=== PATIENT | male | born 1940 ===

== ENCOUNTER 2018-05-17 14:42 | Outpatient (CLI) | payer MEDICARE ==
--- NOTE | 2018-05-17 17:28 | MRI ---
LEFT SHOULDER MRI WITHOUT IV CONTRAST: HISTORY: A 77-year-old male with a history of N25.512, left shoulder pain, with limited and painful range of m otion, as well as weakness. TECHNIQUE: Multiplanar, multisequence MRI examination of the left shoulder is performed. FINDINGS: There is a complete retracted tear of the infraspinatus tendon, with high-grade tearing and some asso ciated retraction of the supraspinatus tendon, with what appear to be a few fibers from the supraspin atus tendon, extending to the region of the biceps anchor. There is marked posterior subluxation of the humeral head, relative to the glenoid. There is some high-grade undersurface tearing of the subs capularis tendon, with what appears to be some associated tendinopathy and possibly some associated g ranulation tissue along the undersurface. There is a very high-grade, attenuated, thinned appearance of the biceps tendon, at the level of the upper bicipital groove, with some associated medial sublux ation with some focal thickening of the biceps tendon, caudally, in the bicipital groove, evidence fo r a high-grade, partial-thickness tear, with some associated retraction, as well as what appears to b e some tendinopathy of the biceps tendon, in the intraarticular portion. Severe AC joint arthrosis w ith prominent subchondral cystic changes and fluid in the subacromial and subdeltoid bursa. There is fluid within the subcoracoid recess. Blunting and indistinction of the labrum, particularly the pos terior labrum. There is, in addition, some indistinction involving the undersurface of the deltoid m uscle, probably some low-grade, partial-thickness, undersurface tearing or fraying. No focal full-th ickness actual dehiscence. There is moderate to severe muscle volume loss of the supraspinatus, infr aspinatus, teres minor, and superior portion of the subscapularis muscles. IMPRESSION: 1. Severe longstanding multiple rotator cuff injuries, as above, with some resultant posterior sublu xation of the humeral head, relative to the glenoid. 2. Severe acromioclavicular joint arthrosis. 3. Moderate to severe supraspinatus, infraspinatus, teres minor, and superior subscapularis muscle v olume loss. POS: DELROY
== END 2018-05-17 14:43 | disposition home or self-care (01) ==
LOC: BICMRI 14:42
PROVIDERS: ATTEND Orthopaedic Surgery
DX: M25.512 Pain in left shoulder (principal); S43.002A Unspecified subluxation of left shoulder joint, initial encounter; S46.002A Unspecified injury of muscle(s) and tendon(s) of the rotator cuff of left shoulder, initial encounter; M19.012 Primary osteoarthritis, left shoulder

== ENCOUNTER 2020-04-11 11:48 | Inpatient (IN) | payer MEDICARE ==
--- NOTE | 2020-04-11 14:14 | RAD ---
PORTABLE CHEST ONE VIEW: 04/11/20 at 2:09 p.m. HISTORY: Dyspnea. COMPARISON: 01/13/12. FINDINGS: The heart size is prominent. The lungs are expanded without lobar consolidation, pneumothoraces, reggie k pulmonary edema, or pleural effusions. IMPRESSION: No acute process. POS: AH
[2020-04-11] MEDS ORDERED: cefTRIAXone\\ROCEPHIN 1 GM VIAL ONE (14:39)
[2020-04-11] MEDS ORDERED: Vancomycin 1 GM/200 ML BAG ONE (14:39)
[2020-04-11 14:44] LABS: #Basophils 0.1 thou/uL (0.0-0.2); #Eosinphils 0.1 thou/uL (0.0-0.7); #Lymphocytes 1.1 thou/uL (1.20-3.40); #Monocytes 0.9 thou/uL (0.11-0.59); #Neutrophils 8.7 thou/uL (1.40-6.50); %Basophils 0.5 % (0.0-1.0); %Eosinophils 1.1 % (0.0-10.0); %Lymphocytes 9.9 % (21.0-51.0); %Monocytes 8.5 % (0.0-10.0); Hemoglobin 14.4 g/dL (14.0-18.0); Mean Corpuscular HGB CONC 32.1 g/dL (32.0-36.0); Mean Corpuscular Hemoglobin 29.4 pg (27.0-31.0); Mean Corpuscular Volume 91.6 fL (78.0-98.0); Mean Platelet Volume 9.1 fL (7.4-10.4); Platelet Count 239 thou/uL (130-400); RBC Distribution Width 13.6 % (11.5-14.5); Red Blood Cell (RBC) Count 4.89 mill/uL (4.70-6.10); White Blood Cell (WBC) Count 10.9 thou/uL (4.8-10.8)
[2020-04-11 15:13] LABS: ALT (SGPT) 12 U/L (8-55); AST (SGOT) 22 U/L (5-34); Albumin 4.3 g/dL (3.4-4.8); Alkaline Phosphatase 82 U/L (40-110); Anion Gap 14 mmol/L (10-20); BUN (Urea Nitrogen) 14 mg/dL (8.4-25.7); Bilirubin, Total 0.8 mg/dL (0.2-1.2); CK (CPK) 105 U/L (30-200); Calc. Creatinine Clearance 0 mL/min (70-130); Calcium 9.9 mg/dL (7.8-10.44); Carbon Dioxide 24 mmol/L (23-31); Chloride 107 mmol/L (98-107); Estimated GFR-MDRD 73; Glucose 89 mg/dL (83-110); Potassium 4.4 mmol/L (3.5-5.1); Protein, Total 7.3 g/dL (5.8-8.1); Sodium 141 mmol/L (136-145)
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
[2020-04-11] MEDS ORDERED: Ondansetron PF 4 MG/2 ML Vial IVP PRN (18:00)
[2020-04-11] MEDS ORDERED: Ondansetron ODT 4 MG TAB SL PRN (18:00)
--- NOTE | 2020-04-11 18:02 | PDOC.FMACP ---
Advance Care Planning - Note Participants: patient Summary: Advanced Care Planning was discussed. The diagnosis, prognosis and goals of care were discussed. Appropriate forms and documentation to accomplish the goals of care were discussed. All questions were answered. The Palliative Care Team will be engaged to assist with completion of any outstanding forms that are needed. Patient would like to be a full code
--- NOTE | 2020-04-11 19:04 | RAD ---
CHEST ONE VIEW: 04/11/20 HISTORY: Shortness of breath. COMPARISON: 04/11/20 FINDINGS: Cardiomegaly. Pulmonary vessels and hilum are normal. Costophrenic angles are clear. No consolidation or mass. No pneumothorax or acute osseous abnormalities. There is evidence of previous right rotator cuff repair. IMPRESSION: No acute cardiopulmonary process. POS: PPP
[2020-04-11 19:07] LABS: Troponin I 0.024 ng/mL (< 0.028)
[2020-04-11 19:12] VITALS: BMI 26.8
[2020-04-11] MEDS: Atorvastatin Calcium 20 MG TAB PO SCH (20:47)
[2020-04-12 00:23] LABS: Bacteria/HPF None Seen HPF (None Seen); Bilirubin Negative (Negative); Blood, Urine Negative (Negative); Clarity Turbid (Clear); Glucose, Urine (Dipstick) Normal (Negative); Ketone, Urine Negative (Negative); Leukocyte 75 Leu/uL (Negative); Nitrite Negative (Negative); Protein, Urine (Dipstick) Negative (Neg-Trace); Specific Gravity, Urine 1.013 (1.002-1.036); Squamous Epithelial None Seen HPF (0-3); Urobilinogen Normal mg/dL (Less than 2); WBC/HPF 21-50 HPF (0-3)
[2020-04-12 00:30] LABS: Urine Culture Reflex Yes Yes
[2020-04-12] MEDS: Vancomycin 1 GM in Premix Bag 1 BAG IVPB SCH ×2 (04:11→15:36)
[2020-04-12] MEDS: Sodium Chloride 0.9% 1,000 ML IV SCH ×2 (04:17→04:18)
[2020-04-12] MEDS: Amlodipine 5 MG TAB PO SCH (08:52)
[2020-04-12] MEDS: Tamsulosin HCl 0.4 MG CAP PO SCH (08:52)
[2020-04-12] MEDS: cefTRIAXone\\ROCEPHIN 2 GM in Sodium Chloride 0.9% 100 ML IVPB SCH (08:53)
[2020-04-12] MEDS ORDERED: Ramipril 5 MG CAP PO SCH (09:00)
--- NOTE | 2020-04-12 11:44 | PDOC.HOSPP ---
- Subjective Encounter Date: 04/12/20 Encounter Time: 11:40 Subjective: f/u for dyspnea and severe MR with vegetation currently receiving Rocephin/Vancomycin for suspected infectious endocarditis. Plan for ASUNCION on 04/14/20. - Objective Vital Signs & Weight: Vital Signs (12 hours) Temp Pulse Resp BP BP Pulse Ox 04/12/20 07:18 97.7 F 75 18 103/70 96 04/12/20 03:00 97.4 F L 73 20 112/64 96 Weight Weight 181 lb 6.4 oz I&O: 04/11/20 04/12/20 04/13/20 06:59 06:59 06:59 Intake Total 530 Output Total 400 Balance 130 Result Diagrams: 04/11/20 14:28 04/11/20 14:28 Additional Labs: Microbiology 04/11/20 18:20 Venous blood - Right Arm Blood Culture - Preliminary Specimen has been received and culture in progress. No Growth to date. 04/11/20 18:19 Venous blood - Left Arm Blood Culture - Preliminary Specimen has been received and culture in progress. No Growth to date. 04/11/20 14:28 Venous blood - Right Arm Blood Culture - Preliminary Specimen has been received and culture in progress. No Growth to date. 04/11/20 14:27 Venous blood - Left Arm Blood Culture - Preliminary Specimen has been received and culture in progress. No Growth to date. Laboratory Tests 04/11/20 14:28 B-Natriuretic Peptide 135.9 H Radiology Reviewed by me: Yes (PCXR - no acute process) EKG Reviewed by me: Yes (Tele - SR) Hospitalist ROS - Medication Medications: Active Medications Generic Name Dose Route Start Last Admin Trade Name Freq PRN Reason Stop Dose Admin Amlodipine Besylate 5 mg 04/12/20 09:00 04/12/20 08:52 Amlodipine 5 Mg Tab PO 5 mg DAILY GINA Administration Atorvastatin Calcium 20 mg 04/11/20 21:00 04/11/20 20:47 Atorvastatin Calcium 20 Mg Tab PO Not Given HS GINA Vancomycin HCl 1 gm/ Device 200 mls @ 200 mls/hr 04/12/20 03:00 04/12/20 04:11 IVPB 200 mls 0300,1500 GINA Administration Ceftriaxone Sodium 2 gm/ 100 mls @ 200 mls/hr 04/12/20 09:00 04/12/20 08:53 Sodium Chloride IVPB 100 mls Q24HR GINA Administration Pantoprazole Sodium 40 mg 04/12/20 09:00 04/12/20 08:52 Pantoprazole 40 Mg Tab PO 40 mg DAILY GINA Administration Tamsulosin HCl 0.4 mg 04/12/20 09:00 04/12/20 08:52 Tamsulosin Hcl 0.4 Mg Cap PO 0.4 mg DAILY GINA Administration - Exam General Appearance: NAD, awake alert Eye: PERRL, anicteric sclera ENT: normocephalic atraumatic, no oropharyngeal lesions, moist mucosa Neck: supple, symmetric, no JVD, no thyromegaly, no lymphadenopathy Heart: RRR, no gallops, no rubs, normal peripheral pulses, murmur present, III/IV Respiratory: CTAB, no wheezes, no rales, no ronchi, normal chest expansion, no tachypnea Gastrointestinal: soft, non-tender, non-distended, normal bowel sounds, no palpable masses Extremities: no cyanosis, no clubbing, no edema Skin: normal turgor, no lesions Neurological: cranial nerve grossly intact, no new deficit Musculoskeletal: normal tone, normal strength, no muscle wasting Psychiatric: normal affect, A&O x 3 Hosp A/P (1) Severe mitral regurgitation Code(s): I34.0 - NONRHEUMATIC MITRAL (VALVE) INSUFFICIENCY Status: Chronic Plan: Continue supportive mgmt, plan for ASUNCION on 04/14/20, ? [facility] (2) Dyspnea Code(s): R06.00 - DYSPNEA, UNSPECIFIED Status: Acute Plan: Suspect due to #1, continue mgmt as outlined above, remains on RA (3) Infective endocarditis Code(s): I33.0 - ACUTE AND SUBACUTE INFECTIVE ENDOCARDITIS Status: Acute Qualifiers: Infective endocarditis organism: bacterial Plan: Suspected, continue Rocephin/Vancomycin, ASUNCION pending (4) HTN (hypertension) Code(s): I10 - ESSENTIAL (PRIMARY) HYPERTENSION Status: Chronic Qualifiers: Hypertension type: essential hypertension Qualified Code(s): I10 - Essential (primary) hypertension Plan: Resume home BP regimen, serial monitoring (5) LAY (obstructive sleep apnea) Code(s): G47.33 - OBSTRUCTIVE SLEEP APNEA (ADULT) (PEDIATRIC) Status: Chronic Plan: Continue nocturnal CPAP - Plan plan discussed w/ family, continue antibiotics, 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 need for LHC OOB/ambulate Nocturnal CPAP AM lab: BMP, CBC
--- NOTE | 2020-04-12 15:28 | CON ---
DATE OF CONSULTATION: REASON FOR CONSULTATION: Severe MRLaurent [employer] PSYCHOLOGIST: Edward Argueta MD HISTORY OF PRESENT ILLNESS: Mr. Muñoz is a very pleasant 79-year-old gentleman, who recently was seen and evaluated by Dr. Edward Argueta. His main complaint has been shortness of breath. He states the shortness of breath began in April of last year. He did see a dentist and had dental workup. He states he had fevers and chills shortly thereafter. He has been off antibiotics a few times since April of last year. He was placed on amoxicillin in addition to Zithromax. He was seen and evaluated at [facility] in November of 2019. There was no mention of any significant changes noted on echo. He continues to complaint of shortness of breath with mild exertion. He did have an echo done in the office, which I have reviewed. Overall, LVEF did appear normal. He did have severe mitral regurgitation with an eccentric jet present. He did have a mass present on the mitral valve versus torn chordae tendineae, although more consistent with mass. PAST MEDICAL HISTORY: Hypertension. MEDICATIONS: Include; 1. Pantoprazole. 2. Amlodipine. 3. Atorvastatin. 4. Tamsulosin. 5. Ramipril. ALLERGIES: NONE. REVIEW OF SYSTEMS: Ten-point review of systems is reviewed as above, otherwise negative. PHYSICAL EXAMINATION: GENERAL: Patient is a pleasant male, who is in no acute distress. The patient appears their stated age. VITAL SIGNS: Blood pressure 110/68, pulse 76, and temperature 98. NEUROLOGIC: The patient is alert and oriented x3 with no focal neurologic deficits. HEENT: Sclerae without icterus. Mouth has moist mucous membranes with normal pallor. NECK: No JVD. Carotid upstroke brisk. No bruits bilaterally. LUNGS: Clear to auscultation with unlabored respirations. BACK: No scoliosis or kyphosis. CARDIAC: Regular rate and rhythm with 3/6 systolic ejection murmur heard best in the lower left sternal border. ABDOMEN: Soft, nontender, nondistended. No peritoneal signs present. No hepatosplenomegaly. No abnormal striae. EXTREMITIES: 2+ femoral and 2+ dorsalis pedis pulses. No cyanosis, clubbing, or edema. SKIN: No gross abnormalities. DIAGNOSTIC DATA: Echo, as above. IMPRESSION: 1. Severe mitral regurgitation. 2. 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 RECOMMENDATIONS: Blood cultures been drawn. If this was felt to be active endocarditis, I would anticipate Mr. Muñoz would appear much sicker than he currently is today. The patient will likely need a ASUNCION. I discussed the procedure in full detail with Mr. Muñoz, risks include, but not limited to the following: Damage to teeth, mouth, back of throat; damage to esophagus; as well as reaction to medication and also aspiration pneumonia. Given the above, the patient agreed to proceed with the above procedure. Otherwise, I have no further recommendations. The patient will likely need mitral clip versus mitral valve repair in the future given his symptoms of shortness of breath. Job ID: [id number]
[2020-04-12] MEDS: Atorvastatin Calcium 20 MG TAB PO SCH (20:54)
[2020-04-12] MEDS: Ramipril 5 MG CAP PO SCH (20:56)
[2020-04-13 02:25] LABS: #Basophils 0.1 thou/uL (0.0-0.2); #Eosinphils 0.6 thou/uL (0.0-0.7); #Lymphocytes 1.4 thou/uL (1.20-3.40); #Neutrophils 6.4 thou/uL (1.40-6.50); %Basophils 0.9 % (0.0-1.0); %Eosinophils 5.9 % (0.0-10.0); %Lymphocytes 14.5 % (21.0-51.0); %Monocytes 10.3 % (0.0-10.0); %Neutrophils 68.4 % (42.0-75.0); Hemoglobin 12.4 g/dL (14.0-18.0); Mean Corpuscular HGB CONC 31.1 g/dL (32.0-36.0); Mean Corpuscular Hemoglobin 28.8 pg (27.0-31.0); Mean Corpuscular Volume 92.4 fL (78.0-98.0); Mean Platelet Volume 8.9 fL (7.4-10.4); Platelet Count 225 thou/uL (130-400); RBC Distribution Width 13.4 % (11.5-14.5); White Blood Cell (WBC) Count 9.4 thou/uL (4.8-10.8)
[2020-04-13] MEDS: Vancomycin 1 GM in Premix Bag 1 BAG IVPB SCH ×2 (03:28→15:05)
[2020-04-13 03:54] LABS: Anion Gap 13 mmol/L (10-20); BUN (Urea Nitrogen) 15 mg/dL (8.4-25.7); Calc. Creatinine Clearance 74 mL/min (70-130); Calcium 8.9 mg/dL (7.8-10.44); Carbon Dioxide 22 mmol/L (23-31); Chloride 107 mmol/L (98-107); Estimated GFR-MDRD 76; Glucose 96 mg/dL (83-110); Potassium 3.8 mmol/L (3.5-5.1); Sodium 138 mmol/L (136-145)
[2020-04-13] MEDS: Amlodipine 5 MG TAB PO SCH (08:43)
[2020-04-13] MEDS: cefTRIAXone\\ROCEPHIN 2 GM in Sodium Chloride 0.9% 100 ML IVPB SCH (08:43)
[2020-04-13] MEDS: Tamsulosin HCl 0.4 MG CAP PO SCH (08:43)
[2020-04-13 10:24] LABS: SARS-CoV-2 MS2 Positive; SARS-CoV-2 N Gene Negative; SARS-CoV-2 S Gene Negative; SARS-CoV-2 by NAA Not Detected (NotDetected); SARS-CoV-2 orf1ab Negative
--- NOTE | 2020-04-13 13:29 | PDOC.CPN ---
- Subjective Date: 04/13/20 Time: 12:30 Interval history: No complaints overnight. - Review of Systems General: denies: fever/chills, weight/appetite/sleep changes, night sweats, fatigue Respiratory: denies: cough, congestion, shortness of breath, exercise intolerance Cardiovascular: denies: chest pain, palpitation, edema, paroxysmal nocturnal dyspnea, orthopnea Gastrointestinal: denies: nausea, vomiting, diarrhea, constipation, abd pain, GI bleeding Musculoskeletal: denies: pain, tenderness, stiffness, swelling, arthritis/arthralgias Neurological: denies: numbness, syncope, seizure, weakness - Objective Allergies/Adverse Reactions: Allergies Allergy/AdvReac Type Severity Reaction Status Date / Time No Known Allergies Allergy Verified 04/11/20 22:06 Visit Medications: Current Medications Amlodipine Besylate (Amlodipine 5 Mg Tab) 5 mg PO DAILY [facility] Last Admin: 04/13/20 08:43 Dose: 5 mg Documented by: Atorvastatin Calcium (Atorvastatin Calcium 20 Mg Tab) 20 mg PO HS [facility] Last Admin: 04/12/20 20:54 Dose: 20 mg Documented by: Vancomycin HCl 1 gm/ Device 200 mls @ 200 mls/hr IVPB 0300,1500 [facility] Last Admin: 04/13/20 03:28 Dose: 200 mls Documented by: Ceftriaxone Sodium 2 gm/ (Sodium Chloride) 100 mls @ 200 mls/hr IVPB Q24HR [facility] Last Admin: 04/13/20 08:43 Dose: 100 mls Documented by: Miscellaneous Medication (Pharmacy To Dose Vancomycin) 1 each IVPB PRN PRN PRN Reason: Pharmacy to dose Pantoprazole Sodium (Pantoprazole 40 Mg Tab) 40 mg PO DAILY [facility] Last Admin: 04/13/20 08:43 Dose: 40 mg Documented by: Ramipril (Ramipril 5 Mg Cap) 10 mg PO HS [facility] Last Admin: 04/12/20 20:56 Dose: Not Given Documented by: Sodium Chloride (Flush - Normal Saline 10 Ml Syringe) 10 ml IVF PRN PRN PRN Reason: Saline Flush Tamsulosin HCl (Tamsulosin Hcl 0.4 Mg Cap) 0.4 mg PO DAILY [facility] Last Admin: 04/13/20 08:43 Dose: 0.4 mg Documented by: Vital Signs & Weight: Vital Signs Temp Pulse Resp BP BP BP Pulse Ox 04/13/20 11:08 98.4 F 71 18 114/73 98 04/13/20 08:43 97 04/13/20 08:39 98.1 F 67 16 117/68 97 04/13/20 03:25 97.3 F L 82 16 107/65 95 Weight 182 lb 6 oz - Physical Exam General: alert & oriented x3, appears well, no apparent distress HEENT: mucus membranes moist Neck: supple neck Cardiac: regular rate and rhythm, systolic murmur Lungs: normal exam Neuro: grossly intact Abdomen: soft Extremities: no edema - Labs Result Diagrams: 04/13/20 02:04 04/13/20 02:04 Troponin/CKMB Troponin I 0.020 ng/mL (< 0.028) 04/11/20 21:07 - Assessment/Plan Assessment/Plan: 1. 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 HTN 3. HLD 4. SOB Await ASUNCION tomorrow. Questions answered.
--- NOTE | 2020-04-13 14:50 | PDOC.HOSPP ---
- Subjective Encounter Date: 04/13/20 Encounter Time: 14:40 Subjective: f/u for dyspnea/severe MR and suspicion for infective endocarditis receiving Rocephin/Vancomycin. Overall feels ok and awaiting ASUNCION to definitively diagnose MV mass. - Objective Vital Signs & Weight: Vital Signs (12 hours) Temp Pulse Resp BP BP BP Pulse Ox 04/13/20 11:08 98.4 F 71 18 114/73 98 04/13/20 08:43 97 04/13/20 08:39 98.1 F 67 16 117/68 97 04/13/20 03:25 97.3 F L 82 16 107/65 95 Weight Weight 182 lb 6 oz I&O: 04/12/20 04/13/20 04/14/20 06:59 06:59 06:59 Intake Total 530 2400 Output Total 400 Balance 130 2400 Result Diagrams: 04/13/20 02:04 04/13/20 02:04 Additional Labs: Microbiology 04/11/20 18:20 Venous blood - Right Arm Blood Culture - Preliminary Specimen has been received and culture in progress. No Growth to date. 04/11/20 18:19 Venous blood - Left Arm Blood Culture - Preliminary Specimen has been received and culture in progress. No Growth to date. 04/11/20 14:28 Venous blood - Right Arm Blood Culture - Preliminary Specimen has been received and culture in progress. No Growth to date. 04/11/20 14:27 Venous blood - Left Arm Blood Culture - Preliminary Specimen has been received and culture in progress. No Growth to date. Laboratory Tests 04/11/20 14:28 B-Natriuretic Peptide 135.9 H EKG Reviewed by me: Yes (Tele - SR) Hospitalist ROS - Medication Medications: Active Medications Generic Name Dose Route Start Last Admin Trade Name Freq PRN Reason Stop Dose Admin Amlodipine Besylate 5 mg 04/12/20 09:00 04/13/20 08:43 Amlodipine 5 Mg Tab PO 5 mg DAILY GINA Administration Atorvastatin Calcium 20 mg 04/11/20 21:00 04/12/20 20:54 Atorvastatin Calcium 20 Mg Tab PO 20 mg HS GINA Administration Vancomycin HCl 1 gm/ Device 200 mls @ 200 mls/hr 04/12/20 03:00 04/13/20 03:28 IVPB 200 mls 0300,1500 GINA Administration Ceftriaxone Sodium 2 gm/ 100 mls @ 200 mls/hr 04/12/20 09:00 04/13/20 08:43 Sodium Chloride IVPB 100 mls Q24HR GINA Administration Pantoprazole Sodium 40 mg 04/12/20 09:00 04/13/20 08:43 Pantoprazole 40 Mg Tab PO 40 mg DAILY GINA Administration Ramipril 10 mg 04/12/20 21:00 04/12/20 20:56 Ramipril 5 Mg Cap PO Not Given HS GINA Tamsulosin HCl 0.4 mg 04/12/20 09:00 04/13/20 08:43 Tamsulosin Hcl 0.4 Mg Cap PO 0.4 mg DAILY GINA Administration - Exam General Appearance: NAD, awake alert Eye: PERRL, anicteric sclera ENT: normocephalic atraumatic, no oropharyngeal lesions Neck: supple, symmetric, no JVD, no thyromegaly, no lymphadenopathy Heart: RRR, no gallops, no rubs, normal peripheral pulses, murmur present, III/IV Heart - other findings: S1, S2 Respiratory: CTAB, no wheezes, no rales, no ronchi, normal chest expansion Gastrointestinal: soft, non-tender, non-distended, normal bowel sounds, no p alpable masses Extremities: no cyanosis, no clubbing, no edema Skin: normal turgor, no lesions Neurological: cranial nerve grossly intact, no new deficit Musculoskeletal: normal tone, normal strength, no muscle wasting Psychiatric: normal affect, A&O x 3 Hosp A/P (1) Severe mitral regurgitation Code(s): I34.0 - NONRHEUMATIC MITRAL (VALVE) INSUFFICIENCY Status: Chronic Plan: Plan for ASUNCION in am, continue medical mgmt, ? surgical intervention (2) Dyspnea Code(s): R06.00 - DYSPNEA, UNSPECIFIED Status: Acute Plan: Likely related to #1, see above (3) Infective endocarditis Code(s): I33.0 - ACUTE AND SUBACUTE INFECTIVE ENDOCARDITIS Status: Acute Qualifiers: Infective endocarditis organism: bacterial Plan: Suspected, continue Rocephin/Vancomycin, ASUNCION pending (4) HTN (hypertension) Code(s): I10 - ESSENTIAL (PRIMARY) HYPERTENSION Status: Chronic Qualifiers: Hypertension type: essential hypertension Qualified Code(s): I10 - Essential (primary) hypertension (5) LAY (obstructive sleep apnea) Code(s): G47.33 - OBSTRUCTIVE SLEEP APNEA (ADULT) (PEDIATRIC) Status: Chronic - 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 need for LHC OOB/ambulate Nocturnal CPAP AM lab: BMP, CBC
[2020-04-13] MEDS: Ramipril 5 MG CAP PO SCH (20:59)
[2020-04-13] MEDS: Atorvastatin Calcium 20 MG TAB PO SCH (20:59)
[2020-04-14 02:52] LABS: Vancomycin, Trough 15.4 ug/mL
[2020-04-14] MEDS: Vancomycin 1 GM in Premix Bag 1 BAG IVPB SCH ×2 (03:21→15:24)
[2020-04-14] MEDS: cefTRIAXone\\ROCEPHIN 2 GM in Sodium Chloride 0.9% 100 ML IVPB SCH (10:08)
[2020-04-14] MEDS: Amlodipine 5 MG TAB PO SCH (10:09)
[2020-04-14] MEDS: Tamsulosin HCl 0.4 MG CAP PO SCH (10:10)
[2020-04-14] MEDS ORDERED: Lidocaine 1% PF 5 ML VIAL ONE (11:59)
[2020-04-14] MEDS ORDERED: PROPOFOL 200 MG/20 ML VIAL ONE (11:59)
--- NOTE | 2020-04-14 14:35 | PDOC.HOSPP ---
- Subjective Encounter Date: 04/14/20 Encounter Time: 14:30 Subjective: f/u for suspected infective endocarditis undergoing ASUNCION today receiving Rocephin/Vancomycin. MV mass vs ruptured chordae tendinae awaiting ASUNCION. - Objective Vital Signs & Weight: Vital Signs (12 hours) Temp Pulse Resp BP BP BP BP 04/14/20 12:00 96.7 F L 71 16 104/61 04/14/20 10:09 85 111/64 04/14/20 08:00 96.8 F L 85 16 109/64 04/14/20 03:18 97.7 F 74 18 109/69 Pulse Ox 04/14/20 12:00 04/14/20 10:09 04/14/20 08:00 97 04/14/20 03:18 96 Weight Weight 185 lb 4 oz I&O: 04/13/20 04/14/20 04/15/20 06:59 06:59 06:59 Intake Total 2400 1280 Balance 2400 1280 Result Diagrams: 04/13/20 02:04 04/13/20 02:04 Additional Labs: Microbiology 04/11/20 18:20 Venous blood - Right Arm Blood Culture - Preliminary Specimen has been received and culture in progress. No Growth to date. 04/11/20 18:19 Venous blood - Left Arm Blood Culture - Preliminary Specimen has been received and culture in progress. No Growth to date. 04/11/20 14:28 Venous blood - Right Arm Blood Culture - Preliminary Specimen has been received and culture in progress. No Growth to date. 04/11/20 14:27 Venous blood - Left Arm Blood Culture - Preliminary Specimen has been received and culture in progress. No Growth to date. Laboratory Tests 04/11/20 14:28 B-Natriuretic Peptide 135.9 H Radiology Reviewed by me: Yes (ASUNCION - pending) EKG Reviewed by me: Yes (Tele - SR) Hospitalist ROS - Medication Medications: Active Medications Generic Name Dose Route Start Last Admin Trade Name Freq PRN Reason Stop Dose Admin Amlodipine Besylate 5 mg 04/12/20 09:00 04/14/20 10:09 Amlodipine 5 Mg Tab PO 5 mg DAILY GINA Administration Atorvastatin Calcium 20 mg 04/11/20 21:00 04/13/20 20:59 Atorvastatin Calcium 20 Mg Tab PO 20 mg HS GINA Administration Vancomycin HCl 1 gm/ Device 200 mls @ 200 mls/hr 11/14/20 03:00 04/14/20 03:21 IVPB 200 mls 0300,1500 GINA Administration Ceftriaxone Sodium 2 gm/ 100 mls @ 200 mls/hr 04/12/20 09:00 04/14/20 10:08 Sodium Chloride IVPB 100 mls Q24HR GINA Administration Pantoprazole Sodium 40 mg 04/12/20 09:00 04/14/20 10:10 Pantoprazole 40 Mg Tab PO 40 mg DAILY GINA Administration Ramipril 10 mg 04/12/20 21:00 04/13/20 20:59 Ramipril 5 Mg Cap PO Not Given HS GINA Sodium Chloride 10 ml 04/11/20 18:00 04/14/20 10:10 Flush - Normal Saline 10 Ml Syringe IVF 10 ml PRN PRN Administration Saline Flush Tamsulosin HCl 0.4 mg 04/12/20 09:00 04/14/20 10:10 Tamsulosin Hcl 0.4 Mg Cap PO 0.4 mg DAILY GINA Administration - Exam General Appearance: NAD, awake alert Eye: PERRL, anicteric sclera ENT: normocephalic atraumatic, no oropharyngeal lesions Neck: supple, symmetric, no JVD, no thyromegaly, no lymphadenopathy Heart: RRR, no gallops, no rubs, normal peripheral pulses, murmur present, III/IV Heart - other findings: S1, S2 Respiratory: CTAB, no wheezes, no rales, no ronchi, normal chest expansion, no tachypnea Gastrointestinal: soft, non-tender, non-distended, normal bowel sounds, no palpable masses, no hepatomegaly Extremities: no cyanosis, no clubbing, no edema Skin: normal turgor, no lesions Neurological: cranial nerve grossly intact, no new deficit Musculoskeletal: normal tone, normal strength, no muscle wasting Psychiatric: normal affect, A&O x 3 Hosp A/P (1) Severe mitral regurgitation Code(s): I34.0 - NONRHEUMATIC MITRAL (VALVE) INSUFFICIENCY Status: Chronic Plan: ASUNCION pending currently, ? surgical intervention (2) Dyspnea Code(s): R06.00 - DYSPNEA, UNSPECIFIED Status: Acute Plan: Suspect related to #1, supportive mgmt (3) Infective endocarditis Code(s): I33.0 - ACUTE AND SUBACUTE INFECTIVE ENDOCARDITIS Status: Acute Qualifiers: Infective endocarditis organism: bacterial Plan: Suspected, continue Rocephin/Vancomcyin, Blood cx negative to date (4) HTN (hypertension) Code(s): I10 - ESSENTIAL (PRIMARY) HYPERTENSION Status: Chronic Qualifiers: Hypertension type: essential hypertension Qualified Code(s): I10 - Essential (primary) hypertension (5) LAY (obstructive sleep apnea) Code(s): G47.33 - OBSTRUCTIVE SLEEP APNEA (ADULT) (PEDIATRIC) Status: Chronic - Plan plan discussed w/ family, social services technician, out of bed/ambulate Continue Rocephin/Vancomycin Plan for ASUNCION on 04/14/20, results pending ? need for LHC, plan for 04/15/20 OOB/ambulate Nocturnal CPAP NPO after MN AM lab: BMP, CBC
[2020-04-14] MEDS ORDERED: Sodium Chloride 0.9% 10 ML ONE (14:56)
[2020-04-14] MEDS ORDERED: Communication Order-Pharmacy FS SCH (16:15)
[2020-04-14] MEDS: Atorvastatin Calcium 20 MG TAB PO SCH (21:16)
[2020-04-14] MEDS: Ramipril 5 MG CAP PO SCH (21:18)
[2020-04-15] MEDS: Vancomycin 1 GM in Premix Bag 1 BAG IVPB SCH (03:53)
--- NOTE | 2020-04-15 07:59 | OP ---
DATE OF PROCEDURE: 04/14/2020 STUDY PERFORMED: Transesophageal echocardiogram. Per Muñoz is a 79-year-old gentleman with mitral regurgitation. The patient was taken to the PACU. The patient was sedated by Anesthesiology. A transesophageal probe was placed into the distal esophagus and stomach. Echocardiographic images were obtained. The transesophageal probe was removed. FINDINGS: 1. Normal left ventricular systolic function. 2. Normal aortic valve. 3. Mitral valve prolapse of the anterior mitral valve leaflet with ruptured chordae tendineae. 4. Severe mitral regurgitation. 5. Mild tricuspid regurgitation. 6. Trivial pericardial effusion. 7. No vegetations were noted on the aortic, mitral or tricuspid valve. 8. Atherosclerotic debris in the descending aorta. IMPRESSION: Ruptured mitral valve chordae tendineae with mitral valve prolapse of the anterior mitral valve leaflet with severe mitral regurgitation. Job ID: [id number] MTDD
[2020-04-15] MEDS: Amlodipine 5 MG TAB PO SCH (08:41)
[2020-04-15] MEDS: Tamsulosin HCl 0.4 MG CAP PO SCH (08:41)
[2020-04-15] MEDS ORDERED: Iopamidol 370 76% 100 ML VIAL ONE (08:48)
[2020-04-15] MEDS ORDERED: Communication Order-Pharmacy FS SCH (09:15)
--- NOTE | 2020-04-15 09:24 | PRG ---
DATE OF SERVICE: SUBJECTIVE: Mr. Muñoz is breathing well. No chest pain or pressure. Today reviewed the case with him. He said in last April, he had some fever and received antibiotics, but he has not had fever since then. The patient received some antibiotics a couple of months ago routinely after some wisdom teeth extraction. He has not been on antibiotics since then. OBJECTIVE: VITAL SIGNS: Blood pressure 112/67, pulse 76. LUNGS: Clear. CARDIAC: There is a loud holosystolic murmur. ABDOMEN: Soft and nontender. EXTREMITIES: There is no edema. IMAGING STUDIES: Transesophageal echo looks like there is a flail mitral valve leaflet. ASSESSMENT: 1. Severe mitral regurgitation related to flail mitral valve prolapse. 2. No evidence of any endocarditis. PLAN: 1. Stop antibiotics. 2. Proceed to cardiac catheterization. Discussed risk of stroke, heart attack, iodine allergy, loss of blood supply to leg or kidney, stent thrombosis, stent restenosis and the events that is indicated. He understands and wished to proceed. Job ID: [id number]
[2020-04-15] MEDS: Sodium Chloride 0.9% 1,000 ML IV SCH ×2 (10:00→21:50)
[2020-04-15] MEDS: cefTRIAXone\\ROCEPHIN 2 GM in Sodium Chloride 0.9% 100 ML IVPB SCH (10:01)
[2020-04-15] MEDS ORDERED: Midazolam HCl 2 mg/2 ml Vial ONE (10:30)
[2020-04-15] MEDS ORDERED: Fentanyl 100 MCG/2 ML VIAL ONE (10:30)
[2020-04-15] MEDS ORDERED: Vancomycin 1 GM/200 ML BAG ONE (11:14)
[2020-04-15] MEDS ORDERED: Nitroglycerin 0.4 MG TAB (25 Tab Bottle) SL PRN (11:37)
[2020-04-15] MEDS ORDERED: Sodium Chloride 0.9% 200 ML IV PRN (11:37)
[2020-04-15] MEDS ORDERED: Acetaminophen/Codeine 30-300mg Tablet PO PRN ×2 (11:37)
--- NOTE | 2020-04-15 17:02 | PDOC.HOSPP ---
- Subjective Encounter Date: 04/15/20 Encounter Time: 17:00 Subjective: f/u for severe MR s/p heart cath showing minimal CAD and no flow-limiting process. Overall pt feels ok and denies dyspnea. - Objective Vital Signs & Weight: Vital Signs (12 hours) Temp Pulse Resp BP BP Pulse Ox 04/15/20 15:15 97.3 F L 74 14 119/69 94 L 04/15/20 11:50 97.7 F 81 16 114/68 95 04/15/20 11:38 97.7 F 81 16 114/81 95 04/15/20 07:32 98.4 F 76 18 112/67 97 Weight Weight 185 lb I&O: 04/14/20 04/15/20 04/16/20 06:59 06:59 06:59 Intake Total 1280 1740 Balance 1280 1740 Result Diagrams: 04/13/20 02:04 04/13/20 02:04 Radiology Reviewed by me: Yes (Heart cath - EF 55%, no flow-limiting dz) EKG Reviewed by me: Yes (Tele - SR) Hospitalist ROS - Medication Medications: Active Medications Generic Name Dose Route Start Last Admin Trade Name Freq PRN Reason Stop Dose Admin Amlodipine Besylate 5 mg 04/12/20 09:00 04/15/20 08:41 Amlodipine 5 Mg Tab PO 5 mg DAILY GINA Administration Atorvastatin Calcium 20 mg 04/11/20 21:00 04/14/20 21:16 Atorvastatin Calcium 20 Mg Tab PO 20 mg HS GINA Administration Sodium Chloride 1,000 mls @ 100 mls/hr 04/15/20 09:15 04/15/20 10:00 Normal Saline 0.9% IV 1,000 mls .Q10H GINA Administration Pantoprazole Sodium 40 mg 04/12/20 09:00 04/15/20 08:41 Pantoprazole 40 Mg Tab PO 40 mg DAILY GINA Administration Ramipril 10 mg 04/12/20 21:00 04/14/20 21:18 Ramipril 5 Mg Cap PO Not Given HS GINA Sodium Chloride 10 ml 04/11/20 18:00 04/14/20 10:10 Flush - Normal Saline 10 Ml Syringe IVF 10 ml PRN PRN Administration Saline Flush Tamsulosin HCl 0.4 mg 04/12/20 09:00 11/17/20 08:41 Tamsulosin Hcl 0.4 Mg Cap PO 0.4 mg DAILY GINA Administration - Exam General Appearance: NAD, awake alert Eye: PERRL, anicteric sclera ENT: normocephalic atraumatic, no oropharyngeal lesions Neck: supple, symmetric, no JVD, no thyromegaly, no lymphadenopathy Heart: RRR, no gallops, no rubs, normal peripheral pulses, murmur present Heart - other findings: S1, S2 Respiratory: CTAB, no wheezes, no rales, no ronchi, normal chest expansion, no tachypnea Gastrointestinal: soft, non-tender, non-distended, normal bowel sounds Extremities: no cyanosis, no clubbing, no edema Skin: normal turgor, no lesions Neurological: cranial nerve grossly intact, no focal deficits Musculoskeletal: normal tone, normal strength, no muscle wasting Psychiatric: normal affect, A&O x 3 Hosp A/P (1) Severe mitral regurgitation Code(s): I34.0 - NONRHEUMATIC MITRAL (VALVE) INSUFFICIENCY Status: Chronic Plan: Likely will need mitral clip or potential replacement (2) Dyspnea Code(s): R06.00 - DYSPNEA, UNSPECIFIED Status: Acute Plan: Improved and resolved currently (3) HTN (hypertension) Code(s): I10 - ESSENTIAL (PRIMARY) HYPERTENSION Status: Chronic Qualifiers: Hypertension type: essential hypertension Qualified Code(s): I10 - Essential (primary) hypertension Plan: Stable, continue home BP regimen (4) LAY (obstructive sleep apnea) Code(s): G47.33 - OBSTRUCTIVE SLEEP APNEA (ADULT) (PEDIATRIC) Status: Chronic - Plan plan discussed w/ family, social media intern, out of bed/ambulate, DVT proph w/SCDs D/C Rocephin/Vancomycin, no evidence of endocarditis LHC without flow-limiting dz OOB/ambulate Nocturnal CPAP ? mitral valve replacment vs mitral clip
[2020-04-15] MEDS: Atorvastatin Calcium 20 MG TAB PO SCH (21:49)
[2020-04-15] MEDS: Ramipril 5 MG CAP PO SCH (21:50)
[2020-04-16] MEDS: Sodium Chloride 0.9% 1,000 ML IV SCH (07:43)
[2020-04-16 07:52] VITALS: BP 122/69; TEMP 97.6
[2020-04-16] MEDS: Tamsulosin HCl 0.4 MG CAP PO SCH (08:33)
[2020-04-16] MEDS: Amlodipine 5 MG TAB PO SCH (08:33)
[2020-04-16] MEDS ORDERED: Aspirin 81 mg Enteric Coated Tablet PO SCH (09:00)
--- NOTE | 2020-04-16 09:51 | PRG ---
DATE OF SERVICE: 04/16/2020 SUBJECTIVE: Mr. Muñoz is doing well. No chest pain and pressure feels well. OBJECTIVE: VITAL SIGNS: His blood pressure is 122/69, pulse 70 and it is regular LUNGS: Clear. CARDIAC: There is a 3/6 holosystolic murmur of mitral regurgitation. ABDOMEN: Soft, nontender. EXTREMITIES: Warm, dry. No clubbing. No cyanosis. There is no edema. DIAGNOSTIC STUDIES: Echocardiogram as mentioned, showed severe mitral regurgitation with mitral valve prolapse and a torn chordae. Cardiac catheterization yesterday revealed left main normal. LAD normal. There is a branch of the obtuse marginal which looks like a chronic occlusion with collateral flow and a 70% distal lesion. Right coronary 40%, ejection fraction 55%. Mild left ventricular dilatation. ASSESSMENT: 1. Mitral regurgitation. 2. Mild coronary disease. At this time most likely the mitral regurgitation is due to the torn chordae in addition to probably some of the infarct of the posterior wall. PLAN: 1. I recommend the patient proceed to surgical consideration, but the patient wishes to be considered for a possible MitraClip. We will refer to [facility] to see if that is an option. 2. He is on amlodipine 5 mg a day, ramipril 10 mg a day, Atorvastatin 20 mg a day. Add aspirin 81 mg a day. We will arrange for outpatient consultation. Job ID: [id number]
--- NOTE | 2020-04-16 11:08 | DIS ---
DATE OF ADMISSION: 04/11/2020 DATE OF DISCHARGE: 04/16/2020 DISCHARGE DIAGNOSES: 1. Severe mitral regurgitation secondarily to ruptured chordae tendineae. 2. Dyspnea secondarily to severe mitral regurgitation. 3. Hypertension, stable. 4. Coronary artery disease, mild, medically managed. 5. Hyperlipidemia. CONSULTATIONS: Dr. Argueta with Cardiology Service. PERTINENT LABORATORY AND X-RAY FINDINGS: Basic metabolic profile within normal limits. Troponin I negative x3. BNP 136. CBC within normal limits. COVID-19 PCR not detected on 04/11/2020. Blood cultures x4 showed no growth at 48 hours on 04/11/2020. Urine culture dated 04/11/2020 showed no growth at 36 hours. Portable chest x-ray dated 04/11/2020 showed no acute cardiopulmonary process. Cardiac catheterization dated 04/15/2020, showed mild coronary artery disease. Ejection fraction 55%. Severe mitral regurgitation noted. Transesophageal echocardiogram dated 04/14/2020, showed severe mitral valve regurgitation secondarily to ruptured chordae tendineae. No evidence of endocarditis. HOSPITAL COURSE: The patient was initially admitted to the telemetry unit after presenting with increased shortness of breath and concern for initial endocarditis. The patient with transthoracic echocardiogram showing a small pericardial effusion and mitral regurgitation with questionable thickening of the mitral valve. The patient was initially placed on broad-spectrum IV antibiotic therapy with vancomycin and Rocephin with 4 sets of blood cultures obtained, showing no growth at 48 hours. The patient underwent transesophageal echocardiogram evaluation, showing severe mitral regurgitation secondarily to ruptured chordae tendineae and no evidence of bacterial or infectious endocarditis. The patient underwent cardiac catheterization showing mild coronary artery disease with recommendations for medical management. Current recommendations are to pursue mitral valve replacement versus MitraClip procedure on an outpatient basis. I have examined the patient at the time of discharge and discussed followup instructions. The patient verbalizes understanding and agreement, ready for discharge on 04/16/2020. DISCHARGE MEDICATIONS: 1. Flomax 0.4 mg p.o. daily. 2. Norvasc 5 mg p.o. daily. 3. Protonix 40 mg p.o. daily. 4. Enteric-coated aspirin 81 mg p.o. daily. 5. Ramipril 10 mg p.o. at bedtime. 6. Lipitor 40 mg p.o. at bedtime. FOLLOWUP: The patient may follow up with his primary care provider, Dr. Alex Roberto at [facility]. The patient will follow up with Dr. Edward Argueta with [facility]. CONDITION ON DISCHARGE: Stable. ACTIVITY: Ad naseem. DIET: Heart healthy. CODE STATUS: Full. DISPOSITION: To home on 04/16/2020. TIME SPENT: Total time preparing and coordinating discharge, 36 minutes. Job ID: [id number]
[2020-04-16] MEDS ORDERED: Atorvastatin Calcium 40 MG TAB PO SCH (21:00)
--- NOTE | 2020-04-19 05:41 | PQF ---
CLINICAL DOCUMENTATION CLARIFICATION FORM: Dear :Jered Moon Date / Time: 04/19/2020 05:41 Please exercise your independent, professional judgment in responding to the clarification form. Clinical indicators are provided on the bottom of this form for your review Please check appropriate box(es) to clarify if the following diagnosis has been ruled in our ruled out: Myocardial Infarction of posterior wall [ ] Ruled in diagnosis [ ] Continue to treat [ ] Resolved [ x ] Ruled out diagnosis [ ] Improving [ ] Cannot rule out diagnosis [ ] Other diagnosis, please specify [ ] Unable to determine Physician Signature: Date/Time: For continuity of documentation, please document condition throughout progress notes and discharge summary. Thank You. To be completed by CDI/Coding staff for physician review: Present Clinical Indicators - Signs / Symptoms / Labs Results and Location in Medical Record [x] probably some of the infarct of the posterior wall PN 04/16 [x] EKG: non specific EKG, QTC ED Notes 04/11 [x] he has been having shortness of breath HP 04/11 [x] Troponin: 04/11=0.022,0.024,0.020 Laboratory 04/11 Present Risk Factors Results and Location in Medical Record [x] Severe mitral regurgitation DS 04/16 [x] Ruptured chodae tendineae DS 04/16 [x] HTN DS 04/16 [x] CAD DS 04/16 [x] HLD DS 04/16 Present Treatments Results and Location in Medical Record [x] 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
== END 2020-04-16 10:31 | disposition home or self-care (01) | DRG 287 ==
LOC: ERS 11:48 → 2NO 16:05
PROVIDERS: ADMIT Emergency Medicine; ATTEND Family Medicine
PROC: 5A09357 Assistance with Respiratory Ventilation, Less than 24 Consecutive Hours, Continuous Positive Airway Pressure (ICD-10-PCS; 2020-04-11)
PROC: B24BZZ4 Ultrasonography of Heart with Aorta, Transesophageal (ICD-10-PCS; 2020-04-14)
PROC: 4A023N8 Measurement of Cardiac Sampling and Pressure, Bilateral, Percutaneous Approach (ICD-10-PCS; principal; 2020-04-15)
PROC: B2111ZZ Fluoroscopy of Multiple Coronary Arteries using Low Osmolar Contrast (ICD-10-PCS; 2020-04-15)
PROC: B2151ZZ Fluoroscopy of Left Heart using Low Osmolar Contrast (ICD-10-PCS; 2020-04-15)
PROC: 4A033BC Measurement of Arterial Pressure, Coronary, Percutaneous Approach (ICD-10-PCS; 2020-04-15)
DX: I08.1 Rheumatic disorders of both mitral and tricuspid valves (principal); I10 Essential (primary) hypertension; Z20.828 Contact with and (suspected) exposure to other viral communicable diseases; G47.33 Obstructive sleep apnea (adult) (pediatric); Z96.619 Presence of unspecified artificial shoulder joint; N40.0 Benign prostatic hyperplasia without lower urinary tract symptoms; I34.1 Nonrheumatic mitral (valve) prolapse; I25.10 Atherosclerotic heart disease of native coronary artery without angina pectoris; E78.5 Hyperlipidemia, unspecified; Z90.49 Acquired absence of other specified parts of digestive tract
CPT/HCPCS: 36415; 71045; 76942; 80048; 80053; 80202; 81001; 82550; 83605; 83880; 84484; 85025; 87040; 87086; 87635; 93005; 93312; 93460; 93561; 96365; 96367; 99152; 99153; J0696; J1644; J2250; J2704; J3010; J3370; J3490; Q9967; U0003

== ENCOUNTER 2023-01-03 10:41 | Emergency (ER) | payer MEDICARE ==
[~2023-01-03 10:41] MED LIST: Iopamidol-370 76% 500 ML MDV (1 ML CHARGE) ONE
[2023-01-03 11:19] LABS: #Monocytes 0.8 thou/uL (0.11-0.59); #Neutrophils 13.1 thou/uL (1.40-6.50); %Basophils 0.3 % (0.0-1.0); %Eosinophils 0.3 % (0.0-10.0); %Lymphocytes 5.3 % (21.0-51.0); %Monocytes 5.5 % (0.0-10.0); %Neutrophils 88.1 % (42.0-75.0); Hematocrit 45.1 % (42.0-52.0); Hemoglobin 14.6 g/dL (14.0-18.0); Mean Corpuscular HGB CONC 32.4 g/dL (32.0-36.0); Mean Corpuscular Hemoglobin 30.2 pg (27.0-31.0); Mean Corpuscular Volume 93.4 fl (78.0-98.0); Mean Platelet Volume 11.3 fL (7.4-10.4); Platelet Count 206 10x3/uL (130-400); RBC Distribution Width 12.8 % (11.5-14.5); Red Blood Cell (RBC) Count 4.83 mill/uL (4.70-6.10); White Blood Cell (WBC) Count 14.8 10x3/uL (4.8-10.8)
[2023-01-03 11:46] LABS: ALT (SGPT) 23 U/L (8-55); AST (SGOT) 28 U/L (5-34); Albumin 4.3 g/dL (3.4-4.8); Alkaline Phosphatase 72 U/L (40-110); Anion Gap 11 mmol/L (10-20); BUN (Urea Nitrogen) 12 mg/dL (8.4-25.7); Bilirubin, Total 0.9 mg/dL (0.2-1.2); Calc. Creatinine Clearance 0 mL/min (70-130); Calcium 9.8 mg/dL (7.8-10.44); Carbon Dioxide 24 mmol/L (23-31); Chloride 103 mmol/L (98-107); Estimated GFR 85; Globulin 3.2 g/dL (2.4-3.5); Glucose 118 mg/dL (83-110); Lipase 7 U/L (8-78); Potassium 4.3 mmol/L (3.5-5.1); Protein, Total 7.5 g/dL (5.8-8.1); Sodium 134 mmol/L (136-145)
[2023-01-03] MEDS ORDERED: Ketorolac Tromethamine 30 MG/ML VIAL ONE ×2 (11:56→11:58)
[2023-01-03] MEDS ORDERED: diphenhydrAMINE 50 MG/ML VIAL ONE ×2 (11:56→11:58)
[2023-01-03] MEDS ORDERED: Ondansetron ODT 4 MG TAB ONE (11:56)
[2023-01-03] MEDS ORDERED: methylPREDNISolone Sod Succ/PF 125 MG/2 ML VIAL ONE ×2 (11:56→11:58)
[2023-01-03] MEDS ORDERED: Famotidine/PF 20 mg/2ml Vial ONE (11:57)
[2023-01-03] MEDS ORDERED: methylPREDNISolone Sod Succ 40 MG VIAL ONE (11:58)
[2023-01-03 12:06] LABS: Bacteria/HPF None Seen HPF (None Seen); Bilirubin Negative (Negative); Blood, Urine Negative (Negative); CAUTI Indications for Culture Dysuria,urgency,freq; Clarity Clear (Clear); Glucose, Urine (Dipstick) Normal (Negative); Ketone, Urine Negative (Negative); Leukocyte Negative Leu/uL (Negative); Nitrite Negative (Negative); Protein, Urine (Dipstick) 10 mg/dL (Neg-Trace); RBC/HPF 0-3 HPF (0-3); Specific Gravity, Urine 1.014 (1.002-1.036); Squamous Epithelial None Seen HPF (0-3); Urobilinogen Normal mg/dL (Less than 2)
[2023-01-03 12:08] LABS: Urine Culture Reflex No No
== END 2023-01-03 13:31 | disposition home or self-care (01) ==
LOC: ERS 10:41
DX: M54.50 Low back pain, unspecified (principal); E27.9 Disorder of adrenal gland, unspecified; N20.0 Calculus of kidney; K76.89 Other specified diseases of liver; I10 Essential (primary) hypertension; E78.00 Pure hypercholesterolemia, unspecified; Z79.899 Other long term (current) drug therapy; Z79.82 Long term (current) use of aspirin
CPT/HCPCS: 36415; 74177; 80053; 81001; 83690; 85025; 96374; 96375; J1200; J1885; J2920; J2930; Q0162; Q9967; S0028

== ENCOUNTER 2025-04-04 09:19 | Outpatient (CLI) | payer MEDICARE, OTHER | END 2025-04-04 09:20 | disposition home or self-care (01) | LOC: SCSMRI 09:19 | PROVIDERS: ATTEND Family Medicine | DX: G57.02 Lesion of sciatic nerve, left lower limb (principal); M62.89 Other specified disorders of muscle ==